=== PATIENT | male | born 2000 | race Caucasian/White ===

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

== ENCOUNTER → 2022-02-12 14:34 | Outpatient (CLI) | payer OTHER, SELFPAY | PROVIDERS: PCP Family Medicine; Visit Provider Internal Medicine Cardiovascular Disease | DX: R06.00 Dyspnea, unspecified (principal); R07.89 Other chest pain; R00.0 Tachycardia, unspecified; I10 Essential (primary) hypertension | CPT/HCPCS: 93225 ==

== ENCOUNTER → 2022-02-16 13:35 | Outpatient (CLI) | payer OTHER, SELFPAY ==
--- NOTE | 2022-02-16 13:36 | CA_ITS ---
APPROVED REPORT EXAM: Comprehensive 2D, Doppler, and color-flow Echocardiogram Gold Nib Grinder: Marisol Remy CRT Ht: 5 ft 9 in Wt: 429lbs BSA: 2.86 BP: 140/92 mmHg Indications: Chest Pain, Shortness of Breath, Hypertension/HDD 2D Dimensions LVOT 1.73 cm (M/F) 1.5-2.5 LA Volume 22.10 mL LA Volume Index 7.70 mL/m2 (M/F) 16-34 M-Mode Dimensions RVDd 3.19 cm (0.9-2.6) LA Diam 3.87 cm (1.9-4.0) LVDd 4.50 cm (3.5-5.7) Ao Diam 4.12 cm (2.0-3.7) LVDs 2.68 cm (3.5-5.7) IVSd 1.83 cm (0.6-1.1) PWd 0.55 cm (0.6-1.1) EF (Teich) 71.30% FS 40.40% EDV (Teich) 92.40 mL ESV (Teich) 26.50 mL LV Diastology E Decel Time 150.00 (160-240 msec) E/A Ratio 1.79 MED E' 9.00 (< 7 cm/sec) MED A' 7.90 cm/s E'/MED E' Ratio 10.81 (>14) LAT E' 14.30 (<10 cm/sec) LAT A' 11.50 cm/s E/LAT E' Ratio 6.80 (>14) Aortic Valve AO Peak GR. 7.10 mmHg Mitral Valve MV E Max Rey. 97.00 (40-130 cm/s) MV A Velocity 54.00 (40-130 cm/s) E/A Ratio 1.79 MV Decel. Time 150.00 (160-240 ms) MV PHT 44.00 ms Pulmonary Valve PV Peak Velocity 123.00 (50-150 cm/s) Tricuspid Valve TR P. Velocity 122.00 cm/s RAP Estimate 10.00 mmHg RVSP 16.00 mmHg Left Ventricle Technically very difficult study because of the patient factors and poor acoustic windows. Left atrium is normal size, left ventricle is normal size, estimated ejection fraction 55% with no regional wall motion abnormality, diastolic parameters are within normal range. Right Ventricle Right atrium and right ventricular normal size and contractility. Aortic Valve Aortic valve is poorly visualized, Doppler is not indicated for aortic stenosis or aortic insufficiency. Mitral Valve Mitral valve is poorly visualized, there is no mitral stenosis, there is trace mitral regurgitation. Tricuspid Valve Tricuspid valve grossly normal, there is trace tricuspid regurgitation, tricuspid regurgitation jet velocity is inadequate for calculation of the right ventricular systolic pressure. Pulmonic Valve Pulmonic valve is poorly visualized. Great Vessels Aortic root is normal size. Inferior vena cava is poorly visualized. Pericardium No significant pericardial effusion noted. Conclusion 1. Technically difficult study because of the patient factors and poor acoustic windows. 2. Normal left ventricular size, preserved left ventricular systolic function, estimated ejection fraction 55% with no regional wall motion abnormality, diastolic parameters are within normal range. 3. Trace mitral and tricuspid regurgitation. 4. No significant pericardial effusion 5. Inferior vena cava is poorly visualized. Electronically signed by : Paul Rachel MD 02/16/2022 20:31:17
== END ==
PROVIDERS: PCP Family Medicine; Visit Provider Family Medicine
DX: R07.89 Other chest pain (principal); I10 Essential (primary) hypertension
CPT/HCPCS: 93306

== ENCOUNTER 2022-07-04 17:26 | Emergency (ER) | payer OTHER, SELFPAY ==
[2022-07-04 17:39] VITALS: BP 147/81; PULSE 126; RESP 17; TEMP 36.9; O2SAT 96; BMI 64.5
[2022-07-04 17:55] LABS: Influenza A, PCR Not Detected (NotDetected); Influenza B, PCR Not Detected (NotDetected)
[2022-07-04 18:06] LABS: Strep Scrn Group A (Rapid) Negative (Negative)
[2022-07-04 18:15] LABS: Coronavirus 19, PCR Detected (NotDetected)
[2022-07-04 18:30] VITALS: BP 128/74; PULSE 106; RESP 18; O2SAT 100
--- NOTE | 2022-07-04 19:34 | HMH.EDGENADL ---
Discharge Plan Disposition Patient Disposition: Home, Self-Care Condition: Good Chief Complaint: Upper Respiratory Infection Prescriptions Prescriptions: New Paxlovid (EUA) 300 mg (150 mg x 2)-100 mg tablet See Rx Instructions .Route .COMPLEX Qty: 30 0RF Rx Instructions: take TWO 150 mg tablets of nirmatrelvir with ONE 100 mg tablet of ritonavir twice daily for 5 days No Action bisoprolol fumarate 10 mg tablet 10 mg PO DAILY Qty: 30 2RF lisinopril 20 mg tablet 20 mg PO DAILY Qty: 90 3RF metformin 500 mg tablet 500 mg PO BID Qty: 180 3RF Referrals Follow up/Referrals: Chance Borges MD [Primary Care Provider] - See instructions Activity Restrictions/Add. Instructions Additional Instructions/Restrictions: Paxlovid as prescribed. ADDITIONAL INSTRUCTIONS FOR COVID-19: Rest, drink plenty of fluids. Tylenol or Ibuprofen for fever and/or aches and pains. Monitor your symptoms. IF YOU HAVE AN EMERGENCY WARNING SIGN (INCLUDING TROUBLE BREATHING), SEEK EMERGENCY MEDICAL CARE IMMEDIATELY. COVID-19 Isolation: People with COVID-19 should isolate for 5 days. Then if they are asymptomatic (no symptoms) or their symptoms are resolving (without fever for 24 hours), follow that by 5 days of wearing a mask when around others to minimize the risk of infecting people you encounter. If you test positive for COVID-19 and never develop symptoms, day 0 is the day of your positive viral test (based on the date you were tested) and day 1 is the first full day after your positive test. If you develop symptoms after testing positive, your 5-day isolation period must start over. Day 0 is your first day of symptoms. Day 1 is the first full day after your symptoms developed. What to do: Stay in a separate room from other household members, if possible. Use a separate bathroom, if possible. Avoid contact with other members of the household and pets. Don?t share personal household items, like cups, towels, and utensils. Wear a mask when around other people if able. Clinical Impressions Clinical Impression: COVID-19 virus infection, Acute tonsillitis Discharge ED Provider: Jose Lyons General Adult HPI General Chief complaint: Upper Respiratory Infection Stated complaint: sore throat, SOB Time Seen by Provider: 07/04/22 19:34 Mode of Arrival: Ambulatory Source of Information: Patient Limitations: No Limitations Description of Symptoms (Recalled from ER Triage Doc. by RN): pt to ed c/o sore throat x2 days. pt states he doesnt feel good. History of Present Illness HPI narrative: Arrives by ambulance. Patient states he has been sick for 2 to 3 days, main symptom is a sore throat and swollen tonsils. Slight cough. He feels like he has had a fever, temperature not taken. Does not feel good. His mother had COVID diagnosed about 5 days ago. He expects that he has COVID. He was not vaccinated against COVID. He has a history of hypertension and tachycardia. He has not been vaccinated against COVID. Related Data Previous Rx's Medication Instructions Recorded lisinopril 20 mg tablet 20 mg PO DAILY bp #90 tabs 02/01/22 metformin 500 mg tablet 500 mg PO BID #180 tabs 02/01/22 bisoprolol fumarate 10 mg tablet 10 mg PO DAILY #30 tabs 02/12/22 nirmatrelvir 300 mg (150 mg x See Rx Instructions .Route 07/04/22 2)-ritonavir 100 mg tablet (EUA) .COMPLEX #30 tabs (Paxlovid 300 mg () Allergies Allergy/AdvReac Type Severity Reaction Status Date / Time amoxicillin [AMOXICILLIN] Allergy Mild Verified 02/12/22 14:03 [facility] Medical History (Updated 07/04/22 @ 19:49 by Jose Lyons MD) Daytime somnolence Dyspnea Snoring Tachycardia Social History Smoking Status: Never smoker alcohol intake: never substance use type: denies use current occupational status: unemployed and student Travel in the last 8 weeks: None household members: family housing: house number [facility]
--- NOTE | 2022-07-04 19:47 | PC.NURSE ---
Pt's mother, Yeny Yeung, called for an update. OK'ed per son to give update. Mother updated on POC and that [t would be d/c shortly and she is headed this way to pick him up
--- NOTE | 2022-07-04 19:48 | PC.NURSE ---
Given drink and pt teaching on COVID and d/c instructions
[2022-07-04 20:06] VITALS: BP 135/88; PULSE 87; RESP 18; TEMP 36.9; O2SAT 99
== END 2022-07-04 20:12 | disposition home or self-care (01) ==
PROVIDERS: Emergency Provider Emergency Medicine; PCP Family Medicine
DX: R06.9 Unspecified abnormalities of breathing; J03.80 Acute tonsillitis due to other specified organisms; R06.02 Shortness of breath; I10 Essential (primary) hypertension; Z28.310 Unvaccinated for COVID-19; Z79.84 Long term (current) use of oral hypoglycemic drugs; Z79.899 Other long term (current) drug therapy; Z88.0 Allergy status to penicillin; Z88.1 Allergy status to other antibiotic agents; Z88.3 Allergy status to other anti-infective agents
CPT/HCPCS: 87430; 96372; 99284; C9803; U0003; U0005

== ENCOUNTER 2022-11-15 12:29 | Emergency (ER) | payer OTHER, SELFPAY ==
[2022-11-15 13:40] VITALS: BP 134/75; PULSE 117; RESP 18; TEMP 36.6; O2SAT 97; BMI 62.7
[2022-11-15 14:30] VITALS: BP 154/79; PULSE 98; RESP 16; O2SAT 99
[2022-11-15 16:12] LABS: Uric Acid 7.7 mg/dl (3.5-8.5)
--- NOTE | 2022-11-15 16:20 | HMH.EDGENADL ---
Discharge Plan Disposition Patient Disposition: Home, Self-Care Condition: Good Prescriptions Prescriptions: New indomethacin 50 mg capsule 50 mg PO TID Qty: 20 0RF Rx Instructions: administer with food or milk No Action lisinopril 20 mg tablet 20 mg PO DAILY Qty: 90 3RF metformin 500 mg tablet 500 mg PO BID Qty: 180 3RF bisoprolol fumarate 10 mg tablet See Rx Instructions .ROUTE .COMPLEX Qty: 30 2RF Dose Instruction: TAKE ONE TABLET BY MOUTH EVERY DAY Rx Instructions: TAKE ONE TABLET BY MOUTH EVERY DAY Paxlovid (EUA) 300 mg (150 mg x 2)-100 mg tablet See Rx Instructions .Route .COMPLEX Qty: 30 0RF Rx Instructions: take TWO 150 mg tablets of nirmatrelvir with ONE 100 mg tablet of ritonavir twice daily for 5 days Referrals Follow up/Referrals: Chance Borges MD [Primary Care Provider] - See instructions Activity Restrictions/Add. Instructions Additional Instructions/Restrictions: Indomethacin 3 times a day until 24-hour of symptom resolution, no more than 5 days. Follow-up PCP in 1 to 2 days. Return to ER for worsening Clinical Impressions Clinical Impression: Gout Instructions Patient Instructions: DI for Gout Discharge ED Provider: Samy Delcid General Adult HPI General Chief complaint: PAIN Stated complaint: No Accident, Left Foot pain Time Seen by Provider: 11/15/22 15:21 Mode of Arrival: Ambulatory Source of Information: Patient Limitations: No Limitations Description of Symptoms (Recalled from ER Triage Doc. by RN): c/o L great toe pain, reports pain is right in the joint of his toe x3 days. Pr reports painful to touch, can't move his toe History of Present Illness HPI narrative: 22yo M presents to the ER with left great toe pain. Reports symptoms ongoing x3-day. Denies previous episode. States anything touching his toe causes significant pain. Has past medical history for hypertension, tachycardia, migraines. Patient concerned for gout. Related Data Previous Rx's Medication Instructions Recorded lisinopril 20 mg tablet 20 mg PO DAILY bp #90 tabs 02/01/22 metformin 500 mg tablet 500 mg PO BID #180 tabs 02/01/22 nirmatrelvir 300 mg (150 mg See Rx Instructions .Route 07/04/22 x2)-ritonavir 100 mg tablet,dose .COMPLEX #30 tabs pack(EUA) (Paxlovid) bisoprolol fumarate 10 mg tablet See Rx Instructions .Route 10/11/22 .COMPLEX #30 tabs indomethacin 50 mg capsule 50 mg PO TID #20 caps 11/15/22 Allergies Allergy/AdvReac Type Severity Reaction Status Date / Time amoxicillin [AMOXICILLIN] Allergy Mild Verified 07/20/22 10:18 [facility] Disclaimer: The information contained in this section may have been updated after the patient was seen, as this information can be updated by other users. Medical History Daytime somnolence Dyspnea Snoring Tachycardia Social History Smoking Status: Never smoker alcohol intake: never substance use type: denies use current occupational status: unemployed and student Travel in the last 8 weeks: None household members: family housing: house number of children: 0 ROS Obtained: Yes Systems reviewed as appropriate & no additional complaints except as documented Physical Exam General General appearance: alert, in no apparent distress and obese Head Head exam: atraumatic Eye Eye exam: Present normal appearance Neck Neck exam: Present trachea midline Chest Chest inspection: Present symmetric chest wall rise Respiratory Respiratory exam: Present normal lung sounds bilaterally; Absent respiratory distress or wheezes Cardiovascular Cardiovascular exam: Present normal rhythm, tachycardia and normal heart sounds Abdominal Exam Abdominal exam: Present soft Extremities Exam Extremities exam: Present tenderness (Left great toe MTPJ) Neurological Exam Neurological exam: Present miguel ángel
[2022-11-15 16:35] VITALS: BP 150/72; PULSE 110; RESP 18; TEMP 36.7; O2SAT 98
== END 2022-11-15 16:40 | disposition home or self-care (01) ==
PROVIDERS: Emergency Provider Family Medicine; PCP Family Medicine
DX: M10.072 Idiopathic gout, left ankle and foot (principal); R40.0 Somnolence; Z86.79 Personal history of other diseases of the circulatory system
CPT/HCPCS: 36415; 84550; 99283; 99284

== ENCOUNTER → 2023-09-06 15:17 | Outpatient (CLI) | payer OTHER, SELFPAY ==
--- NOTE | 2023-09-06 15:31 | XR_ITS ---
FINAL REPORT CLINICAL HISTORY: Right knee pain after fall COMPARISON: None FINDINGS: Three views of the right knee reveal no evidence of fracture or dislocation. There is a calcification along the medial aspect of the medial femoral condyle of uncertain etiology but could represent sequela of prior injury. The bony alignment is normal. The joint spaces are preserved. There is no evidence of joint effusion. No localized soft tissue abnormality is identified. IMPRESSION: No acute abnormality identified. Reviewed, Interpreted and Dictated by Tolu Restrepo III, MD Transcribed by Anny Cantu Authenticated and [facility]
[2023-09-06 15:43] LABS: Basophils # 0.2 K/mm3 (0-0.2); Eosinophils # 0.2 K/mm3 (0.0-0.4); Eosinophils % 1.4 % (0.1-12.0); Hematocrit 45.8 % (42.0-52.0); Hemoglobin 15.7 g/dL (14.1-18.0); Lymphocytes # 3.4 K/mm3 (0.7-4.5); Lymphocytes % 23.5 % (10-50); Mean Corpuscular HGB Conc 34.2 g/dL (31.8-35.4); Mean Corpuscular Hemoglobin 28.7 pg (27.0-31.2); Mean Corpuscular Volume 83.8 fl (80-94); Mean Platelet Volume 8.8 fl (7.4-10.4); Monocytes # 0.9 K/mm3 (0.1-1.0); Monocytes % 5.9 % (1.7-9.3); Neutrophils # 9.9 K/mm3 (1.8-7.8); Neutrophils % 68.1 % (37.0-80.0); Platelet Count 366 K/mm3 (142-424); Red Blood Count 5.46 M/mm3 (4.60-6.20); Red Cell Distribution Width 14.4 % (11.5-17.5); White Blood Count 14.6 K/mm3 (4.8-10.8)
[2023-09-06 15:55] LABS: Chloride 102 mmol/L (98-107); Sodium 135 mmol/L (136-145)
[2023-09-06 15:56] LABS: Potassium 5.1 mmoL/L (3.5-5.1)
[2023-09-06 15:58] LABS: Alanine Aminotransferase 30 U/L (12-78); Albumin Level 4.3 g/dl (3.5-5.0); Albumin/Globulin Ratio 1.1 (1.1-1.8); Alkaline Phosphatase 73 U/L (38-126); Anion Gap 13.1 mEq/L (5-15); Aspartate Amino Transferase 29 U/L (17-59); Bilirubin,Total 0.3 mg/dl (0.2-1.3); Blood Urea Nitrogen 24 mg/dl (9-20); Carbon Dioxide 25 mmol/L (22.0-30.0); Estimated Glomerular Filt Rate 106 ml/min (>60); GFR (African American) 128 ML/MIN (>60); Globulin 3.8 g/dL (1.3-3.2); Total Protein,Serum 8.1 g/dl (6.3-8.2)
[2023-09-06 15:59] LABS: Calcium 9.1 mg/dl (8.4-10.2); Glucose 116 mg/dl (74-100)
[2023-09-06 16:30] LABS: Thyroid Stimulating Hormone 1.85 uIU/mL (0.465-4.68)
[2023-09-06 18:53] LABS: Hemoglobin A1C 5.5 % (4.0-6.0)
== END ==
PROVIDERS: PCP Nurse Practitioner Family; Visit Provider Nurse Practitioner Family
DX: R73.03 Prediabetes (principal); R53.83 Other fatigue; M25.561 Pain in right knee; G89.29 Other chronic pain
CPT/HCPCS: 36415; 73562; 80053; 83036; 84443; 85025

== ENCOUNTER → 2023-09-19 12:32 | Outpatient (CLI) | payer OTHER, SELFPAY ==
--- NOTE | 2023-09-19 | CA_ITS ---
APPROVED REPORT EXAM: Comprehensive 2D, Doppler, and color-flow Echocardiogram Cyberathlete: Wendi Stewart RT(R) Ht: 5 ft 9 in Wt: 430lbs BSA: 2.86 BP: 141/63 mmHg Indications: SOA, CP, HTN, fatigue, DM, morbid obesity. Limited scan secondary to body habitus. LV Diastology E Decel Time 310.00 (160-240 msec) E/A Ratio 1.15 MED E' 8.40 (< 7 cm/sec) E'/MED E' Ratio 9.14 (>14) LAT E' 11.00 (<10 cm/sec) E/LAT E' Ratio 6.98 (>14) Mitral Valve MV A Velocity 66.00 (40-130 cm/s) E/A Ratio 1.15 MV Decel. Time 310.00 (160-240 ms) Left Ventricle The left ventricle is normal size. The left ventricular systolic function is normal. The left ventricular ejection fraction is within the normal range. THe LV wall thickness cannot be adequately estimated due to technically difficult study. There is normal LV segmental wall motion. The left ventricular diastolic function is normal. LVEF is 55%. Right Ventricle The right ventricle is grossly normal size. The right ventricular systolic function is normal. Atria The left atrium size is normal. The right atrium size is normal. The interatrial septum Aortic Valve The aortic valve leaflets are not well visualized. There is no aortic valvular stenosis. No aortic regurgitation is present. Mitral Valve The mitral valve leaflets are not well visualized. No evidence of mitral valve stenosis. There is no mitral valve regurgitation noted. Tricuspid Valve The tricuspid valve leaflets are not well visualized. Trace tricuspid regurgitation. There is insufficient TR jet to estimate RVSP. Pulmonic Valve The pulmonic valve is not well visualized. Great Vessels The aortic root and ascending aorta are not well visualized. The IVC is not well visualized. Pericardium There is no pericardial effusion. Other Information Study Quality: Technically Difficult. Technically limited study due to body habitus. Conclusion Technically difficult and limited study due to poor accoustic windows and body habitus. Grossly, normal biventricular systolic function. No significant valvular stenosis or regurgitation in the visualized valves. Electronically signed by : Nadine Mccartney MD 09/24/2023 20:11:52
--- NOTE | 2023-09-19 12:36 | NM_ITS ---
APPROVED REPORT Exam: Nuclear Stress Test Indication: soa..fatigue Patient Location: Outpatient Stress Tech: Valeri Pineda [place] Tech:ALEENA Iraheta RT (R)(N)(M) Ht: 5 ft 9 in Wt: 431 lbs HR: 89 bpm BP: 154/91 mmHg BSA: 2.86 m2 Rhythm: NSR TID: 1.53 BMI: 63.6 History: soa..fatigue Procedure: Patient received 0.4 mg of intravenous Lexiscan, resting heart rate 89 bpm, resting blood pressure 154/91 mmHg, with Lexiscan maximum heart rate achieved was 109 bpm which is 85 % of the maximum predicted heart rate and blood pressure was 140/79 mmHg. With Lexiscan, patient denied any complaint of chest pain. The patient was not able to lay on his abdomen for prone images. Cardiac Stress and Resting SPECT Images: Cardiac Stress and Resting SPECT images were obtained using technetium 99m Myoview 31.3 mCi stress and 10.30 mCi at rest. The patient could not lie on his abdomen for prone stress imaging. This may affect the diagnostic interpretation of the study findings. Resting and stress imaging in supine position demonstrate medium sized, moderate, reversible perfusion defect in the basal inferior LV wall. There is increased transient ischemic dilatation ratio (TID 1.53), suggestive of possible multivessel disease or balanced ischemia. Gated imaging demonstrates normal global LV systolic function. There is mild hypokinesis of the basal inferior LV wall. LVEF is calculated at 69%. Conclusion: Medium sized, moderate, reversible perfusion defect in the basal inferior LV wall. Findings are suggestive of reversible ischemia. There is increased transient ischemic dilatation ratio (TID 1.53), suggestive of possible multivessel disease or balanced ischemia. Gated imaging demonstrates normal global LV systolic function. There is mild hypokinesis of the basal inferior LV wall. LVEF is calculated at 69%. Electronically signed by : Nadine Mccartney MD 09/27/2023 11:55:25
--- NOTE | 2023-09-19 13:58 | CA_ITS ---
APPROVED REPORT Exam: Pharmacologic Technologist: Valeri Pineda Ht: 5 ft 9 in Wt: 431 lbs BSA: 2.86 m2 HR: 89 bpm BP: 154/91 mmHg Rhythm: NSR Indications: Shortness of Air, Fatigue Medical History Medications: Lisinopril,,,,, Metformin,,,,, BisOPROLOL,,,,, INdomethacin,,,,, Stress Test Details Test: LEXISCAN HR Resting HR: 96 bpm Max Heart Rate (APMHR): 198 bpm Max HR Achieved: 120 bpm Target HR (85% APMHR): 168 bpm % of APMHR: 61 Recovery HR: 101 bpm BP Resting BP: 154.0/91.0 mmHg Max BP: 155.0/75.0 mmHg Recovery BP: 151.0/76.0 mmHg ECG Resting ECG: Sinus rhythm Stress ECG: No significant ST changes Clinical Exercise duration: 04:00 min Highest Stage Achieved: Exercise capacity: 1.0 METs Stress ECG Conclusion Symptoms: Dyspnea, chest tightness Arrhythmias/Ectopy: None ST-T Changes: No significant ST changes Conclusion: Unremarkable Lexiscan stress test. Myoview images are reported separately. Test Summary REST . . . . . . . Resting REST 02:37 . . 96 . 154/ 91 . . Stage 1 . . . . . . . Myoview Injected Stage 1 01:00 . . 120 . . . . Stage 2 . . . . . . . chest tightness Stage 2 01:00 . . 103 . . . . Stage 3 01:00 . . 108 . 155/ 75 . . Stage 4 01:00 . . 107 . 140/ 79 . Stop exercise at 04:00 RECOVERY 01:00 . . 102 . . . . RECOVERY 02:00 . . 95 . . . . RECOVERY 03:00 . . 98 . 152/ 69 . . RECOVERY 04:00 . . 97 . 152/ 69 . . RECOVERY 04:49 . . 97 . 151/ 76 . . Electronically signed by : Nadine Mccartney MD 09/27/2023 11:53:23
== END ==
LOC: RAD 12:33
PROVIDERS: PCP Nurse Practitioner Family; Visit Provider Nurse Practitioner
DX: R07.89 Other chest pain (principal); R06.02 Shortness of breath; R53.83 Other fatigue
CPT/HCPCS: 78452; 93017; 93018; 93306; A9502; J2785

== ENCOUNTER 2023-11-03 15:00 | Outpatient (RCR) | payer OTHER, SELFPAY ==
--- NOTE | 2023-09-15 11:38 | HMH.PTOPEV ---
PT Outpatient Evaluation Rehab PT Outpatient Evaluation Start: 09/15/23 11:17 Freq: Status: Active Protocol: Document 09/15/23 11:17 ELENA (Rec: 09/15/23 11:38 ELENA [id number]) E-signed By Pavan Tejeda, PT Outpatient Therapy Subjective History Subjective History Patient is a 23 year old male presenting to outpatient PT with reports of chronic lumbar spine and R knee pain. LBP of insidious onset. R knee pain secondary to patellar dislocation during a football injury starting approx 4 years ago. Most recent imaging negative. Comorbidities include hx of HTN, tachycardia , diabetes and R ankle ORIF. New diagnosis of cancer in past 12 No months? Chief Complaint Pain,Stiff,Gives out/Unstable Symptom Type Ache,Sharp Symptoms Relieved By Rest/Positioning Symptoms Aggravated By Standing,Physical Activity, Walking Prior Functional Limitations None Current Functional Limitations Housework,Standing,Squatting, Recreation Activity,Walking, Stairs Symptom Description Intermittent Level of pain today (0-10) 2 Pain scale - at its best (0-10) 0 Pain scale - at its worst (0-10) 8 Lumbopelvic Eval Posture Thoracic Spine Posture Standing Position Increased Kyphosis Lumbar Spine Posture Standing Position Increased Lordosis Assistive device Assistive Devices None / NA Palapation tenderness bilateral paraspinal tenderness Yes: L2-S1 3/4 buttock tenderness Yes: R>L Lumbar/Sacral Palpation Findings Tenderness Accessory Movement L2 bilateral L3 bilateral L4 bilateral L5 bilateral S1 bilateral Range of Motion Lumbar Spine ROM Reason Not Measured Within Functional Limits Altered Sensation Bilateral LE Dermatome Level L5,S1 Comment intermittent NT Special Tests Hip Hany (VENECIA) Test Positive Left,Positive Right Hip Sherita Test Positive Left,Positive Right Hip Piriformis Test Positive Left,Positive Right Sciatic Nerve Tension Test Negative Left,Negative Right Vahid Test Positive Sacroiliac Joint Compression Test Negative Left,Negative Right Sacroiliac Joint Distraction Test Negative Left,Negative Right Lumbar Long [place] Distraction Test/Manual Positive Traction Hip/Knee Eval Gait Observation General Gait Pattern Observation Decrease Weight Bear (R) Palpation Tenderness right Knee Palpation Finding Tenderness Knee Palpation Overall Comment medial joint line, patellar tendon 2/4 MMT Hip Flexion Strength Grade 4 Good Hip Abduction Strength Grade 4- Good- Hip Adduction Strength Grade 4- Good- Hip Extension Strength Grade 4- Good- Hip External Rotation Strength Grade 4- Good- Hip Internal Rotation Strength Grade 4- Good- Knee Extension Strength Grade 4- Good- Knee Flexion Strength Grade 5 Normal ROM Hip ROM Reason Not Measured Within Functional Limits Knee Extension Active Range of Motion ( -5 degrees) Knee Flexion Active Range of Motion ( 128 degrees) Special Tests Knee Anterior Drew Test Negative Right Knee Pivot Shift Test Negative Right Knee Valgus Stress Test Negative Right Knee Varus Stress Test Negative Right Knee Frank Test Negative Right Oswestry Index Section 1 Pain Intensity The pain comes and goes and is moderate Section 2 Personal Care (Washing,Dresing) increase the pain and I find it necessary to change my way of doing it Section 3 Lifting lifting heavy weights off the floor, but I can manage light to medium Section 4 Walking I cannot walk more than 1/4 mile without increasing pain Section 5 Sitting Pain prevents me from sitting for more than 10 minutes Section 6 Standing I avoid standing because it increases the pain immediately Section 7 Sleeping Because of my pain, my normal night's sleep is less than 6 hours sleep Section 8 Social Life Pain has restricted my social life to my home Section 9 Traveling Pain restricts all forms of travel Section 10 Changing Degreee of Pain My pain is gradually getting worse Score and Risk Level Oswestry Sc 37 Oswestry Risk Level Completely Disabled Lower Extremity Functional Index Activities Today, do you or would you have any difficulty at all with: a.Any of your usual work, housework or Quite a bit of difficulty school activities b. Your usual hobbies, recreational or Quite a bit of difficulty sporting activities c. Getting into or out of the bath A little bit of difficulty d. Walking between rooms A little bit of difficulty e. Putting on your shoes or socks No difficulty f. Squatting A little bit of difficulty g. Lifting an object, like a bag of Quite a bit of difficulty groceries from the floor h. Performing light activities around Moderate difficulty your home i. Performing heavy activities around Quite a bit of difficulty your home j. Getting into or out of a car A little bit of difficulty k. Walking 2 blocks Quite a bit of difficulty l. Walking a mile Extreme difficulty or unable to perform activity m. Going up or down 10 stairs (about 1 Quite a bit of difficulty flight of stairs) n. Standing for 1 hour Quite a bit of difficulty o. Sitting for 1 hour No difficulty p. Running on even ground Extreme difficulty or unable to perform activity q. Running on uneven ground Extreme difficulty or unable to perform activity r. Making sharp turns while running fast Extreme difficulty or unable to perform activity s. Hopping Extreme difficulty or unable to perform activity t. Rolling over in bed No difficulty LEFI Score Lower Extremity Functional Index Score 33 Outpatient Therapy Assessment Impairments Problems/Impairmments Palpation Tenderness,Impaired Range of Motion,Impaired Strength,Impaired Walking, Impaired Standing,Impaired Household Care,Impaired Stair Climbing,Impaired Incline Stepping,Impaired Stepping on Uneven Surface,Impaired Squatting,Impaired Bending, Impaired Recreational Activities,Impaired Work Activities,Subjective C/O Pain Prognosis Rehab Potential Good Clinical Impression Consistent with Diagnosis Yes Short Term Goals Number of Weeks 2 Decrease Subjective C/O Pain Yes: 03/16 at worst Patient to be Ind w/ HEP Yes Prison Goals Number of Weeks 4-6 Decreased Palpation Tenderness Yes: 11/10 Increase Range of Motion Yes: WNL LS/R knee Increase Strength Yes: 03/11 RLE/core stabilizers Increase Ability to Walk Yes: 30 min without difficulty Increase Ability to Stand Yes: Improve Ability For Household Care Yes Improve Ability to Climb Stairs Yes: 1 flight up/down without difficulty Decrease Subjective C/O Pain Yes: 12/17 at worst Outpatient Therapy Plan of Care Treatment Plan May Include Therapeutic Exercise Including Home Yes Exercise Program Manual Therapy Techniques Yes Neuromuscular Re-education Yes Therapeutic Activities to Return to Yes Previous Functional/Work Level Gait Training Yes ADL/Self Care Education Yes Mechanical Traction Yes Dry Needling Yes Thermal Modalities Yes Electrical Stimulation Yes Ultrasound/Phonophoresis Yes Iontophoresis Yes Orthotics/Bracing/Splinting Yes Vasopneumatic Compression Pump Yes Massage Yes Eval/Re-Eval Yes Frequency Times per week 2 Duration Number of Weeks 4-6 Addendums This patient is a candidate for social No or vocational rehab? Patient/Guardian verbally acknowledges Yes understanding of treatment program and consents to further treatment? Patient/Guardian verbally acknowledges Yes understanding of diagnosis, prognosis and goals for treatment? Eval Complexity PT Charges 59952 - Moderate Complexity Shoulder/Elbow Eval Shoulder Objective Measurements Elbow Objective Measurements PHYSICIAN CERTIFICATION: I certify the specified therapy services for Viraj Cooper are required, authorized, and reviewed every 30 days.
== END 2023-11-03 16:00 | disposition home or self-care (01) ==
LOC: PT 15:00
PROVIDERS: PCP Nurse Practitioner Family; Visit Provider Nurse Practitioner Family
DX: M25.561 Pain in right knee (principal); M54.50 Low back pain, unspecified
CPT/HCPCS: 97110; 97163; 97164; 97530

== ENCOUNTER 2023-12-29 16:08 | Outpatient (CLI) | payer OTHER, SELFPAY ==
[2023-12-29 16:52] LABS: Basophils # 0.1 K/mm3 (0-0.2); Basophils % 0.6 % (0.1-2.0); Eosinophils # 0.2 K/mm3 (0.0-0.4); Eosinophils % 1.5 % (0.1-12.0); Hematocrit 43.1 % (42.0-52.0); Hemoglobin 13.9 g/dL (14.1-18.0); Lymphocytes # 2.8 K/mm3 (0.7-4.5); Mean Corpuscular HGB Conc 32.1 g/dL (31.8-35.4); Mean Corpuscular Volume 87.2 fl (80-94); Mean Platelet Volume 8.8 fl (7.4-10.4); Monocytes # 0.8 K/mm3 (0.1-1.0); Monocytes % 6.5 % (1.7-9.3); Neutrophils # 8.3 K/mm3 (1.8-7.8); Neutrophils % 68.5 % (37.0-80.0); Platelet Count 294 K/mm3 (142-424); Red Blood Count 4.95 M/mm3 (4.60-6.20); Red Cell Distribution Width 14.7 % (11.5-17.5); White Blood Count 12.2 K/mm3 (4.8-10.8)
[2023-12-31 16:15] LABS: Peripheral Smear Review Scanned Result
== END 2023-12-29 23:59 ==
LOC: LAB 16:09
PROVIDERS: PCP Nurse Practitioner Family; Visit Provider Nurse Practitioner Family
DX: D72.829 Elevated white blood cell count, unspecified (principal)
CPT/HCPCS: 36415; 85025

== ENCOUNTER 2024-04-28 17:53 | Emergency (ER) | payer OTHER, SELFPAY ==
[2024-04-28 18:06] VITALS: BP 170/82; PULSE 85; RESP 18; TEMP 36.9; O2SAT 97; BMI 63.5
[2024-04-28] MEDS: ACETAMINOPHEN 500MG TAB 1000 MG PO (20:39)
[2024-04-28] MEDS: IBUPROFEN 400 MG TABLET 800 MG PO (20:39)
--- NOTE | 2024-04-28 20:44 | ED_ITS ---
Discharge Plan Disposition Patient Disposition: Home, Self-Care Condition: Good Prescriptions Prescriptions: New ibuprofen [IBU] 800 mg tablet 800 mg PO Q6H PRN (Reason: pain) 5 Days Qty: 20 0RF acetaminophen [Tylenol Extra Strength] 500 mg tablet 1,000 mg PO Q6H PRN (Reason: pain) 5 Days Qty: 40 0RF No Action indomethacin 50 mg capsule 50 mg PO TID Rx Instructions: administer with food or milk lisinopril 20 mg tablet See Rx Instructions .ROUTE .COMPLEX Qty: 30 0RF Dose Instruction: TAKE ONE TABLET BY MOUTH EVERY DAY FOR BLOOD PRESSURE Rx Instructions: TAKE ONE TABLET BY MOUTH EVERY DAY FOR BLOOD PRESSURE metformin 500 mg tablet See Rx Instructions .ROUTE .COMPLEX Qty: 180 0RF Dose Instruction: TAKE ONE TABLET BY MOUTH TWICE DAILY Rx Instructions: TAKE ONE TABLET BY MOUTH TWICE DAILY amlodipine [Norvasc] 10 mg tablet 10 mg PO DAILY Qty: 90 2RF pantoprazole [Protonix] 40 mg tablet,delayed release (DR/EC) 40 mg PO DAILY Qty: 90 3RF bisoprolol fumarate 10 mg tablet 10 mg PO BID Qty: 90 3RF olanzapine [Zyprexa] 5 mg tablet 5 mg PO QHS Qty: 30 1RF Referrals Follow up/Referrals: Cassie Bruno APRN [Primary Care Provider] - See instructions Activity Restrictions/Add. Instructions Additional Instructions/Restrictions: Please take Tylenol and ibuprofen every 5-6 hours as needed to assist with your pain. You may take them both together. I do recommend taking 800 mg of ibuprofen and 1000 mg of Tylenol. Please do not exceed more than 4000 mg of Tylenol in 1 day. Please follow-up with your primary care physician for further testing as your uric acid level today was normal. Clinical Impressions Clinical Impression: Pain of left great toe Discharge ED Provider: Steven Hill Adult HPI General Chief complaint: PAIN Stated complaint: poss gout LT foot Time Seen by Provider: 04/28/24 19:21 Mode of Arrival: Ambulatory Source of Information: Patient Limitations: No Limitations Description of Symptoms (Recalled from ER Triage Doc. by RN): pt states he thinks he is having a gout flare up. pt c/o L great toe pain since yesterday. pt has a hx of gout. History of Present Illness HPI narrative: 24-year-old male with past medical history significant for GERD, HTN, mood disorder, diabetes, presents today for evaluation concerning left great toe pain over the past day. Denies any associated injuries and reports he was at rest when he began to have pain. States he was seen in the ED last year and was told that he may have gout but has not had a formal diagnosis. He denies having any fevers, chills or any other associated signs at this time Related Data Home Medications Medication Instructions Recorded Confirmed indomethacin 50 mg capsule 50 mg PO TID 09/07/23 02/28/24 Previous Rx's Medication Instructions Recorded lisinopril 20 mg tablet See Rx Instructions .Route 11/21/23 .COMPLEX #30 tabs metformin 500 mg tablet See Rx Instructions .Route 11/28/23 .COMPLEX #180 tabs amlodipine 10 mg tablet (Norvasc) 10 mg PO DAILY #90 tabs 02/03/24 bisoprolol fumarate 10 mg tablet 10 mg PO BID #90 tabs 02/03/24 pantoprazole 40 mg tablet,delayed 40 mg PO DAILY #90 tabs 02/03/24 release (Protonix) olanzapine 5 mg tablet (Zyprexa) 5 mg PO QHS #30 tabs 04/20/24 acetaminophen 500 mg tablet 1,000 mg (2 x 500 mg) PO Q6H PRN 04/28/24 (Tylenol Extra Strength) pain 5 days #40 tabs ibuprofen 800 mg tablet (IBU) 800 mg PO Q6H PRN pain 5 days #20 04/28/24 tabs Allergies Allergy/AdvReac Type Severity Reaction Status Date / Time amoxicillin [AMOXICILLIN] Allergy Mild Verified 02/28/24 15:06 [facility] Disclaimer: The information contained in this section may have been updated after the patient was seen, as this information can be updated by other users. Medical History (Updated 04/28/24 @ 21:11 by Steven Hill DO) Mood disorder GERD (gastroesophageal reflux disease) Daytime somnolence Snoring Dyspnea Tachycardia Social History Smoking Status: Never smoker alcohol intake: never substance use type: denies use current occupational status: unemployed and student Travel in the last 8 weeks: None household members: family housing: house number of children: 0 ROS Obtained: Yes All systems reviewed & no additional complaints except as documented Physical Exam General General appearance: alert and in no apparent distress Head Head exam: atraumatic and normocephalic Eye Eye exam: Present normal appearance, PERRL and EOMI ENT ENT exam: Present normal oropharynx and mucous membranes moist Neck Neck exam: Present full ROM; Absent meningismus Respiratory Respiratory exam: Absent respiratory distress, wheezes, stridor or accessory muscle use Cardiovascular Cardiovascular exam: Present normal rhythm Abdominal Exam Abdominal exam: Present soft; Absent distention, tenderness, guarding, rebound or rigidity Extremities Exam Extremities exam: Present normal inspection, full ROM, tenderness (Tenderness to palpation over the left great toe without any skin changes.) and other Neurological Exam Neurological exam: Present alert, oriented X3 and CN II-XII intact; Absent motor sensory deficit Psychiatric Psychiatric exam: Present normal affect and normal mood Skin Skin exam: Present warm and dry Medical Decision Making Medical Records Medical records reviewed: Yes I reviewed the patient's medical records. [place] Inquiry Pt receiving controlled substance: No [place] was queried for this patient: No Vital Signs: 04/28/24 18:06 Temperature 98.4 F Temperature Source Oral Pulse Rate [Left] 85 Respiratory Rate 18 Blood Pressure [Right Arm] 170/82 H Blood Pressure Mean [Right Arm] 111 Blood Pressure Source [Right Arm] Automatic Cuff Blood Pressure Position [Right Arm] Sitting 02 Sat by Pulse Oximetry 97 Oxygen Delivery Method Room Air Lab Data Lab Results 04/28/24 20:49: Uric Acid 8.2 Orders (Tests/Meds): ED MEDICATIONS Discontinued Medications Generic Name Dose Route Start Last Admin Trade Name Davidq PRN Reason Stop Dose Admin Acetaminophen 1,000 mg 04/28/24 20:36 04/28/24 20:39 Acetaminophen 500mg Tab PO 04/28/24 20:37 1,000 mg ONCE ONE Administration Ibuprofen 800 mg 04/28/24 20:36 04/28/24 20:39 Ibuprofen 400 Mg Tablet PO 04/28/24 20:37 800 mg ONCE ONE Administration ORDERS Category Date Time Status Uric Acid Stat Lab 04/28/24 20:49 Completed Medical Decision Narrative: 24-year-old male with past medical history significant for GERD, HTN, mood disorder, diabetes, presents today for evaluation concerning left great toe pain over the past day. Denies any associated injuries and reports he was at rest when he began to have pain. States he was seen in the ED last year and was told that he may have gout but has not had a formal diagnosis On assessment, the patient was medically stable and in no acute distress. Afebrile. Obese. He did have tenderness over the left great toe without any overlying skin changes. Differential diagnoses include but limited to gout, cellulitis, among others. I did order for uric acid level and it was normal at 8.2. Given normal uric acid level I will order for ibuprofen and Tylenol on discharge. I did reassess patient and discussed management and he verbalized understanding and agreed. He will follow-up with his primary care physician for further testing as needed. He will take ibuprofen and Tylenol over the next few days to assist with his symptoms as ibuprofen assisted well on yesterday. Provided with return precautions. Subsequently discharged hemodynamically stable and in no acute distress. Critical Care Critical Care Time Critical Care Time: No
[2024-04-28 21:04] LABS: Uric Acid 8.2 mg/dl (3.5-8.5)
[2024-04-28 21:42] VITALS: BP 167/81; PULSE 80; RESP 16; TEMP 36.9; O2SAT 98
== END 2024-04-28 21:43 | disposition home or self-care (01) ==
PROVIDERS: Emergency Provider Emergency Medicine; PCP Nurse Practitioner Family
DX: M79.675 Pain in left toe(s) (principal); E11.9 Type 2 diabetes mellitus without complications; K21.9 Gastro-esophageal reflux disease without esophagitis; I10 Essential (primary) hypertension; F39 Unspecified mood [affective] disorder; Z79.84 Long term (current) use of oral hypoglycemic drugs
CPT/HCPCS: 84550; 99283

== ENCOUNTER 2024-10-14 14:58 | Emergency (ER) | payer OTHER, SELFPAY ==
[2024-10-14 15:55] VITALS: BP 142/97; PULSE 98; RESP 18; TEMP 36.9; O2SAT 95; BMI 66.4
--- NOTE | 2024-10-14 16:17 | EXP.UTC ---
Discharge Plan Disposition Patient Disposition: Home, Self-Care Condition: Good Prescriptions Prescriptions: New azithromycin 250 mg tablet 250 mg PO DIRECTED Qty: 6 0RF Rx Instructions: Take two (2) tablets on day #1, then one (1) tablet day #2 thru #5 No Action metformin 500 mg tablet 500 mg PO BID Patient Comments: TAKE ONE TABLET BY MOUTH TWICE DAILY lisinopril 20 mg tablet 20 mg PO DAILY Patient Comments: TAKE ONE TABLET BY MOUTH EVERY DAY olanzapine 10 mg tablet 10 mg PO HS Patient Comments: TAKE ONE TABLET BY MOUTH EVERY DAY AT BEDTIME bisoprolol fumarate 10 mg tablet 10 mg PO BID Patient Comments: TAKE ONE TABLET BY MOUTH TWICE DAILY meloxicam 7.5 mg tablet 7.5 mg PO DAILY Patient Comments: TAKE ONE TABLET BY MOUTH ONCE DAILY --TAKE WITH FOOD-- amlodipine 10 mg tablet 10 mg PO DAILY Patient Comments: TAKE ONE TABLET BY MOUTH EVERY DAY pantoprazole 40 mg tablet,delayed release (DR/EC) 40 mg PO DAILY Patient Comments: TAKE ONE TABLET BY MOUTH EVERY DAY Referrals Follow up/Referrals: Jacky Browne DO [Primary Care Provider] - See instructions Activity Restrictions/Add. Instructions Additional Instructions/Restrictions: Start antibiotics today be sure to take it as ordered with the full length of time although you should start feeling better in 24-48 hours. Change toothbrush and toothpaste 24-48 hours after starting antibiotics Tylenol or Motrin as needed for fever or pain Encourage fluids, water, Gatorade, Powerade, try cold fluids, popsicles, ice cream will make it feel better You are contagious for 24 hours. Avoid kissing anyone, no eating or drinking after anyone. You are contagious. Follow-up the ER for new or worsening symptoms or no noticeable improvement over the next 24-48 hours. Follow-up with PCP this week. Clinical Impressions Clinical Impression: Strep sore throat Instructions Patient Instructions: DI for Strep Throat Print Language Print Language: Irish Discharge ED Provider: May ([facility])Meng [facility] HPI General Stated complaint: soa, congestion, sore throat, weakness Mode of Arrival: Ambulatory Source of Information: Patient Limitations: No Limitations Time Seen by Provider: 10/14/24 16:16 Description of Symptoms (Recalled from Triage Doc. by RN): PATIENT C/O SORE THROAT, SOA, CHEST PAIN WITH COUGH, AND FEELING LIGHT-HEADED SINCE YESTERDAY HEENT Symptoms (Recalled from RN notes): Yes Resp Symptoms (Recalled from RN notes): Yes Skin Symptoms (Recalled from RN notes): No MS Symptoms (Recalled from RN notes): No Functional Status (Recalled from RN notes): WNL History of Present Illness Provider Complaint: 24-year-old male presents for sore throat, shortness of air, pain in his chest only with coughing, and feeling lightheaded with coughing. Related Data Home Medications ?Medication ?Instructions ?Recorded ?Confirmed amlodipine 10 mg tablet 10 mg PO DAILY 10/14/24 10/14/24 bisoprolol fumarate 10 mg tablet 10 mg PO BID 10/14/24 10/14/24 lisinopril 20 mg tablet 20 mg PO DAILY 10/14/24 10/14/24 meloxicam 7.5 mg tablet 7.5 mg PO DAILY 10/14/24 10/14/24 metformin 500 mg tablet 500 mg PO BID 10/14/24 10/14/24 olanzapine 10 mg tablet 10 mg PO HS 10/14/24 10/14/24 pantoprazole 40 mg tablet,delayed 40 mg PO DAILY 10/14/24 10/14/24 release Previous Rx's ?Medication ?Instructions ?Recorded azithromycin 250 mg tablet 250 mg PO DIRECTED #6 tabs 10/14/24 Allergies Allergy/AdvReac Type Severity Reaction Status Date / Time amoxicillin (AMOXICILLIN) Allergy Mild Verified 10/01/24 10:28 Worker's Comp Is this a Worker's Comp case?: No [facility] Disclaimer: The information contained in this section may have been updated after the patient was seen, as this information can be updated by other users. Medical History , [employer]) Mood disorder GERD (gastroesophageal reflux disease) Daytime somnolence Snoring Dyspnea Tachycardia Social History , [employer]) Smoking Status: Never smoker alcohol intake: never substance use type: denies use current occupational status: unemployed and student Travel in the last 8 weeks: None household members: family housing: house number of children: 0 ROS Obtained: Yes Systems reviewed as appropriate & no additional complaints except as documented Physical Exam General General appearance: alert and in no apparent distress Eye Eye exam: Present normal appearance ENT ENT exam: Present mucous membranes moist and TM's normal bilaterally Expanded ENT Exam Throat exam: Present tonsillar erythema, tonsillomegaly and tonsillar exudate Respiratory Respiratory exam: Present normal lung sounds bilaterally Cardiovascular Cardiovascular exam: Present regular rate and normal rhythm Neurological Exam Neurological exam: Present alert and oriented X3 Medical Decision Making Medical Records Medical records reviewed: Yes I reviewed the patient's medical records. Screening: Per USPSTF and CDC recommendations, given the prevalence of disease in our region, it is our hospital?s policy to screen for HIV and viral Hepatitis for all patients aged 18 and over and those with ongoing risk factors. [place] Inquiry Pt receiving controlled substance: No [place] was queried for this patient: No Vital Signs: 10/14/24 15:55 Temperature 98.5 F Temperature Source Oral Pulse Rate [Left Brachial] 98 H Respiratory Rate 18 Blood Pressure [Left Arm] 142/97 H Blood Pressure Mean [Left Arm] 112 Blood Pressure Source [Left Arm] Automatic Cuff Blood Pressure Position [Left Arm] Sitting 02 Sat by Pulse Oximetry 95 Oxygen Delivery Method Room Air
[2024-10-14 16:18] LABS: UTC Strep Screen (Rapid) Negative (Negative)
[2024-10-14 16:25] VITALS: BP 142/97; PULSE 98; RESP 18; TEMP 36.9; O2SAT 95
== END 2024-10-14 16:28 | disposition home or self-care (01) ==
PROVIDERS: Emergency Provider Nurse Practitioner Family; PCP Internal Medicine
DX: J02.0 Streptococcal pharyngitis (principal)
CPT/HCPCS: 87880; 99213; G0381

== ENCOUNTER 2024-12-04 10:00 | Outpatient (CLI) | payer OTHER, SELFPAY | END 2024-12-04 23:59 | disposition home or self-care (01) | LOC: LAB.DROPOF 12-05 10:00 | PROVIDERS: PCP Nurse Practitioner Family; Visit Provider Nurse Practitioner Family | DX: R30.0 Dysuria (principal) | CPT/HCPCS: 87086; 87088; 87186 ==

== ENCOUNTER 2025-01-23 11:08 | Outpatient (CLI) | payer OTHER, SELFPAY ==
[2025-01-23 13:35] LABS: Hemoglobin A1C 6.1 % (4.0-6.0)
[2025-01-23 13:53] LABS: 25-OH Vitamin D, Total 32.5 ng/mL (30-100)
[2025-01-23 13:56] LABS: Albumin Level 4.5 g/dl (3.5-5.0); Chloride 101 mmol/L (98-107)
[2025-01-23 13:57] LABS: Free T4 (Free Thyroxine) 1.41 ng/dl (0.78-2.19)
[2025-01-23 13:59] LABS: Alanine Aminotransferase 31 U/L (12-78); Albumin/Globulin Ratio 1.3 (1.1-1.8); Alkaline Phosphatase 86 U/L (38-126); Aspartate Amino Transferase 25 U/L (17-59); Bilirubin,Total 0.5 mg/dl (0.2-1.3); Blood Urea Nitrogen 18 mg/dl (9-20); Carbon Dioxide 28 mmol/L (22.0-30.0); Estimated Glomerular Filt Rate 105 ml/min (>60); GFR (African American) 127 ML/MIN (>60); Globulin 3.4 g/dL (1.3-3.2); Iron 89 ug/dL (49-181); Total Protein,Serum 7.9 g/dl (6.3-8.2)
[2025-01-23 14:00] LABS: Cholesterol 202 mg/dl (140-200); Triglycerides 205 mg/dl (30-150); VLDL Cholesterol 41 mg/dL (0-40)
[2025-01-23 14:06] LABS: Basophils # 0.1 K/mm3 (0-0.2); Basophils % 0.8 % (0.1-2.0); Eosinophils # 0.2 K/mm3 (0.0-0.4); Eosinophils % 1.6 % (0.1-12.0); Hematocrit 46.8 % (42.0-52.0); Hemoglobin 14.9 g/dL (14.1-18.0); Lymphocytes # 3.3 K/mm3 (0.7-4.5); Lymphocytes % 29.4 % (10-50); Mean Corpuscular HGB Conc 31.8 g/dL (31.8-35.4); Mean Corpuscular Hemoglobin 26.9 pg (27.0-31.2); Mean Corpuscular Volume 84.6 fl (80-94); Mean Platelet Volume 10.7 fl (7.4-10.4); Monocytes # 0.9 K/mm3 (0.1-1.0); Monocytes % 7.7 % (1.7-9.3); Neutrophils # 6.7 K/mm3 (1.8-7.8); Platelet Count 365 K/mm3 (142-424); Red Blood Count 5.53 M/mm3 (4.60-6.20); Red Cell Distribution Width 13.8 % (11.5-17.5); White Blood Count 11.2 K/mm3 (4.8-10.8)
[2025-01-23 14:16] LABS: Total Iron Binding Capacity 331 ug/dL (261-462)
[2025-01-23 14:32] LABS: Thyroid Stimulating Hormone 1.47 uIU/mL (0.465-4.68)
[2025-01-23 14:36] LABS: Ferritin 217 ng/ml (17.9-464)
[2025-01-23 14:44] LABS: HIV Combo NEGATIVE (Negative)
[2025-01-23 14:54] LABS: Calcium 10.9 mg/dl (8.4-10.2); Chol/HDL Ratio 6.5 (1-3.5); Glucose 115 mg/dl (74-100); HDL Cholesterol 31 mg/dl (40-60)
[2025-01-23 15:03] LABS: Hepatitis C Ab Qual. W/ RFX NEGATIVE (Negative)
[2025-01-23 15:14] LABS: Sodium 137 mmol/L (136-145)
[2025-01-23 15:44] LABS: Vitamin B12 432 pg/mL (239-931)
== END 2025-01-23 23:59 | disposition home or self-care (01) ==
LOC: LAB.DROPOF 01-24 10:34
PROVIDERS: PCP Nurse Practitioner Family; Visit Provider Nurse Practitioner Family
DX: Z11.59 Encounter for screening for other viral diseases (principal); Z11.4 Encounter for screening for human immunodeficiency virus [HIV]; K21.9 Gastro-esophageal reflux disease without esophagitis; I10 Essential (primary) hypertension; M10.9 Gout, unspecified; E66.01 Morbid (severe) obesity due to excess calories; Z68.44 Body mass index [BMI] 60.0-69.9, adult; R06.83 Snoring; R40.0 Somnolence; R53.83 Other fatigue; R73.03 Prediabetes
CPT/HCPCS: 80053; 80061; 82306; 82607; 82728; 83036; 83540; 83550; 84439; 84443; 84550; 85025; 86803; 87389

== ENCOUNTER 2025-02-14 13:58 | Outpatient (CLI) | payer OTHER, SELFPAY ==
[2025-02-14 16:31] VITALS: BMI 67.6
== END 2025-02-14 23:59 | disposition home or self-care (01) ==
LOC: DIETICIAN 13:58
PROVIDERS: PCP Nurse Practitioner Family; Visit Provider Nurse Practitioner Family
DX: E66.01 Morbid (severe) obesity due to excess calories (principal); Z68.44 Body mass index [BMI] 60.0-69.9, adult
CPT/HCPCS: 97802

== ENCOUNTER → 2025-03-04 11:11 | Outpatient (CLI) | payer OTHER, SELFPAY | LOC: SL 11:11 | PROVIDERS: PCP Nurse Practitioner Family; Visit Provider Nurse Practitioner Family | DX: R40.0 Somnolence (principal); R06.83 Snoring; E66.01 Morbid (severe) obesity due to excess calories; Z68.44 Body mass index [BMI] 60.0-69.9, adult; I10 Essential (primary) hypertension | CPT/HCPCS: G0399 ==

== ENCOUNTER 2025-06-20 15:02 | Outpatient (CLI) | payer OTHER, SELFPAY ==
--- OUTSIDE RECORDS SUMMARY | 2025-06-20 15:04 | XMS_ITS | Clinical Summary ---
Author Organization Healthcare Address [address] [place] [address] Care Team Providers Care Business Intelligence Etl Developer Name Role Phone Mahnaz Carias DANTE Primary Care Provider [phone] Social History Tobacco Use Types Packs/Day Years Used Date Smoking Tobacco: Never Assessed Sex and Gender Information Value Date Recorded Sex Assigned at Not on file Legal Sex Male 8:49 PM EDT Gender Identity Not on file Sexual Orientation Not on file Plan of Treatment Health Maintenance Due Date Last Done Comments [facility]-Depression Screening 2001 [facility]-Infant/Child/Adol SDOH Screenings 2001 HPV Vaccines (3 - Male 3-dose series) 12/15/2018 08/22/2018, 06/14/2018 [facility]-Hepatitis A Vaccines (2 of 2 - 2-dose series) 12/15/2018 06/14/2018 [facility]- SDOH Screenings 2019 [facility]-Adult SDOH Screenings 2019 [facility]-DTaP,Tdap,and Td Vaccines (7 - Td or Tdap) 02/27/2023 02/27/2013, 06/07/2005, 02/19/2003, Additional history exists [id number] Vaccine ( season) 2024 [facility]-Influenza Vaccine (#1) 2025 08/22/2018 [facility]-Zoster Vaccines (1 of 2) 2051 02/27/2013, 02/19/2003 [facility]-Pneumococcal Vaccine: Pediatrics (0 to 5 Years) and At-Risk Patients (6 to 49 Years) Aged Out 2001, 2001 No longer eligibl e based on patient's age to complete this topic [facility]-HIB Vaccines Completed 02/02/2002, , 2001 [facility]-Hepatitis B Vaccines Completed 002, 2001, 2001 [facility]-IPV Vaccines Completed 06/07/2005, 02/2001, 2001, Additional history exists [facility]-Varicella Vaccines Completed 02/27/2013, 2002 [facility]-Rotavirus Vaccines Aged Out No lo nger eligible based on patient's age to complete this topic Insurance [employer] Care Teams Business Intelligence Etl Developer Relationship Specialty Start Date End Date Mahnaz Carias APRN [address] [place] [id number] PCP - General 03/15/25
--- NOTE | 2025-06-20 15:05 | XR_ITS ---
FINAL REPORT CLINICAL HISTORY: thoracic spinal pain COMPARISON: None FINDINGS: Two views of the thoracic spine were obtained. No fracture is seen. Alignment is normal. There is mild diffuse degenerative disc change. IMPRESSION: Mild degenerative changes without acute bony abnormality. Reviewed, Interpreted and Dictated by Shlomo Hanna MD Transcribed by Anny Cantu Authenticated and [facility]
--- NOTE | 2025-06-20 15:05 | XR_ITS ---
FINAL REPORT CLINICAL HISTORY: lumbar pain COMPARISON: None FINDINGS: Three views of the lumbosacral spine were obtained. No fracture is identified. Mild diffuse degenerative disc changes. Mild lower lumbar facet hypertrophy is noted. Alignment is normal. IMPRESSION: Mild degenerative changes without acute bony abnormality. Reviewed, Interpreted and Dictated by Shlomo Hanna MD Transcribed by Anny Cantu Authenticated and [facility]
[2025-06-20 18:13] LABS: Anion Gap 12.3 mEq/L (5-15); Blood Urea Nitrogen 18 mg/dl (9-20); Calcium 9.3 mg/dl (8.4-10.2); Carbon Dioxide 27 mmol/L (22.0-30.0); Chloride 103 mmol/L (98-107); Cholesterol 175 mg/dl (140-200); Creatinine,Serum 0.80 mg/dl (0.66-1.25); Estimated Glomerular Filt Rate 119 ml/min (>60); GFR (African American) 144 ML/MIN (>60); Glucose 139 mg/dl (74-100); HDL Cholesterol 32 mg/dl (40-60); Potassium 5.3 mmoL/L (3.5-5.1); Sodium 137 mmol/L (136-145); Triglycerides 155 mg/dl (30-150); Uric Acid 8.3 mg/dl (3.5-8.5)
[2025-06-20 20:43] LABS: Hemoglobin A1C 6.9 % (4.0-6.0)
== END 2025-06-20 23:59 | disposition home or self-care (01) ==
LOC: RAD 15:03
PROVIDERS: PCP Nurse Practitioner Family; Visit Provider Nurse Practitioner Family
DX: M47.816 Spondylosis without myelopathy or radiculopathy, lumbar region (principal); M47.814 Spondylosis without myelopathy or radiculopathy, thoracic region; F50.819 Binge eating disorder, unspecified; I10 Essential (primary) hypertension; M10.9 Gout, unspecified; E11.9 Type 2 diabetes mellitus without complications; R00.0 Tachycardia, unspecified; Z68.45 Body mass index [BMI] 70 or greater, adult
CPT/HCPCS: 72070; 72100; 80048; 80061; 83036; 84550